=== PATIENT | female | born 1965 | race Caucasian/White ===

== ENCOUNTER 2016-12-13 08:46 | Day surgery (SDC) | payer BC ==
[~2016-12-13] VITALS: Ht 157.5 cm; Wt 71.0 kg
[~2016-12-13 08:46] MED LIST: LACTATED RINGERS 1,000 ML IV SCH; SODIUM CHLORIDE FLUSH 3 ML SYR IV PRN
[2016-12-13 08:55] VITALS: BP 132/88
[2016-12-13] MEDS ORDERED: ALFENTANIL 500 MCG/ML (ALFENTA) 5 ML AMP IV ONE (10:02)
[2016-12-13] MEDS ORDERED: MIDAZOLAM 2 MG/2 ML (VERSED) VIAL ONE (10:02)
[2016-12-13] MEDS ORDERED: PROPOFOL 20 ML IV ONE (10:02)
[2016-12-13] MEDS ORDERED: ONDANSETRON 2 MG/ML (Z0FRAN) 2 ML VIAL ONE (10:14)
[2016-12-13] MEDS ORDERED: diphenhydrAMINE 50 MG/ML INJ (BENADRYL) ONE (10:14)
[2016-12-13 10:46] VITALS: BP 123/72
[2016-12-13 11:05] VITALS: BP 105/74
== END 2016-12-13 11:10 | disposition home or self-care (01) ==
LOC: ASC 08:46
PROVIDERS: ATTEND Surgery
DX: Z12.11 Encounter for screening for malignant neoplasm of colon (principal); D12.5 Benign neoplasm of sigmoid colon; Z83.71 Family history of colonic polyps; E03.9 Hypothyroidism, unspecified
CPT/HCPCS: 45385; J1200; J2250; J2405; J7120